=== PATIENT | male | born 1945 | race Caucasian/White ===

== ENCOUNTER 2017-04-11 19:52 | Emergency (ER) | payer BC, MEDICARE ==
--- NOTE | 2017-04-11 20:15 | EDM.PDOC ---
ED HPI GENERAL MEDICAL PROBLEM - General Chief Complaint: General Stated Complaint: SICK [id number] Time Seen by Provider: 04/11/17 20:15 Source of Information: Reports: Patient History Limitations: Reports: No Limitations - History of Present Illness INITIAL COMMENTS - FREE TEXT/NARRATIVE: brought in by family for confusion and weakness. pt was just d/c from [facility] today from being Tx there for blood clots to feet and lungs with heparin and suppose to begin lovenox tomorrow. but today Sx of confusion & weakness started. also been Dx with CA of [id number]. - Related Data Allergies Allergy/AdvReac Type Severity Reaction Status Date / Time No Known Allergies Allergy Verified 04/11/17 20:47 Home Meds: Home Meds Aspirin [Adult Low Dose Aspirin EC] 81 mg PO DAILY 10/12/16 [History] Canagliflozin [Invokana] 100 mg PO DAILY 10/12/16 [History] Hydrochlorothiazide 25 mg PO DAILY 10/12/16 [History] Latanoprost [Xalatan 0.005% Ophth Soln] 1 drop EYERT BEDTIME 10/12/16 [History] Liraglutide [Victoza] 1.8 mg INJECT DAILY 10/12/16 [History] Lisinopril 5 mg PO DAILY 10/12/16 [History] Metoprolol Succinate [Toprol XL] 50 mg PO DAILY 10/12/16 [History] atorvaSTATin [Lipitor] 40 mg PO BEDTIME 10/12/16 [History] metFORMIN HCl [Metformin HCl] 1 tab PO BIDMEALS 10/12/16 [History] rOPINIRole [Requip] 6 mg PO BEDTIME 10/12/16 [History] traZODone HCl [Trazodone HCl] 100 mg PO BEDTIME 10/12/16 [History] Cinnamon Bark [Cinnamon] 1 cap PO DAILY 04/11/17 [History] Insulin Degludec/Liraglutide [Xultophy 100 Unit-3.6MG/ml Pen] 70 units SQ DAILY 04/11/17 [History] [place]-3/DHA/Epa/Fish Oil [[place]-3 EC Softgel] 1 cap PO DAILY 04/11/17 [History] Ubidecarenone [Coenzyme Q10] 1 cap PO DAILY 04/11/17 [History] ED ROS GENERAL - Review of Systems Review Of Systems: ROS reveals no pertinent complaints other than HPI. ED EXAM, GENERAL - Physical Exam Exam: See Below Exam Limited By: Altered Mental Status General Appearance: Alert, WD/WN, No Apparent Distress, Other (confused) Eye Exam: Bilateral Eye: PERRL (pupils ess ER @ 4mm) Ears: Hearing Grossly Normal Throat/Mouth: Normal Voice, No Airway Compromise Head: Atraumatic Neck: Non-Tender, Full Range of Motion Respiratory/Chest: No Respiratory Distress, No Accessory Muscle Use, Rhonchi. No: Decreased Breath Sounds Cardiovascular: Regular Rate, Rhythm GI/Abdominal: Soft, Non-Tender Neurological: Confused, Slow to Respond, Other (rom equal bilat) Psychiatric: Flat Affect Skin Exam: Warm, Dry, Normal Color Lymphatic: No Adenopathy Course - Vital Signs Last Recorded V/S: Last Vital Signs Temp 37.4 C 04/11/17 20:06 Pulse 118 H 04/11/17 20:06 Resp 22 H 04/11/17 20:06 BP 102/60 04/11/17 20:59 Pulse Ox 92 L 04/11/17 20:06 - Orders/Labs/Meds Orders: Active Orders 24 hr Category Date Time Status EKG 12 Lead [EKG Documentation Completion] [RC] STAT Care 04/11/17 20:11 Active Sodium Chloride 0.9% [Normal Saline] 1,000 ml Med 04/11/17 20:57 Ordered IV .BOLUS Medication Orders Sodium Chloride (Normal Saline) 1,000 mls @ 500 mls/hr IV .BOLUS ONE Stop: 04/11/17 22:56 Labs: Laboratory Tests 04/11/17 04/11/17 04/11/17 Range/Units 20:19 20:19 20:19 WBC 14.3 H (5.0-10.0) 10^3/uL RBC 4.42 L (4.6-6.2) 10^6/uL Hgb 12.7 L (14.0-18.0) g/dL Hct 38.7 L (40.0-54.0) % MCV 87.6 (80-100) fL MCH 28.7 (27.0-34.0) pg MCHC 32.8 L (33.0-35.0) g/dL Plt Count 112 L (150-450) 10^3/uL Neut % (Auto) 78.7 H (42.2-75.2) % Lymph % (Auto) 8.8 L (20.5-50.1) % Nuckolls % (Auto) 11.8 H (2-8) % Eos % (Auto) 0.3 L (1.0-3.0) % Baso % (Auto) 0.4 (0.0-1.0) % Add Manual Diff Yes Neutrophils % (Manual) 83 H (42-75) % Band Neutrophils % 2 % Lymphocytes % (Manual) 7 L (20-50) % Monocytes % (Manual) 8 (2-8) % PT 12.1 H (9.0-12.0) SEC INR 1.2 (0.9-1.2) Sodium 134 L (135-145) mmol/L Potassium 3.8 (3.6-5.0) mmol/L Chloride 100 L (101-111) mmol/L Carbon Dioxide 23.0 (21.0-31.0) mmol/L Anion Gap 14.8 BUN 20 H (7-18) mg/dL Creatinine 1.0 (0.6-1.3) mg/dL Est Cr Clr Drug Dosing 65.18 mL/min Estimated GFR (MDRD) > 60 BUN/Creatinine Ratio 20.00 Glucose 299 H (74-105) mg/dL Calcium 9.0 (8.4-10.2) mg/dl Total Bilirubin 0.8 (0.2-1.0) mg/dL AST 85 H (10-42) IU/L ALT 67 H (10-60) IU/L Alkaline Phosphatase 125 H (42-121) IU/L Troponin I 16.40 H* (0.00-0.02) ng/ml Total Protein 6.5 L (6.7-8.2) g/dl Albumin 3.1 L (3.2-5.5) g/dl Globulin 3.4 Albumin/Globulin Ratio 0.91 Meds: Medications Generic Name Dose Route Start Last Admin Trade Name Freq PRN Reason Stop Dose Admin Sodium Chloride 1,000 mls @ 500 mls/hr 04/11/17 20:57 Normal Saline IV 04/11/17 22:56 .BOLUS ONE Discontinued Medications Generic Name Dose Route Start Last Admin Trade Name Freq PRN Reason Stop Dose Admin Nitroglycerin 0.4 mg 04/11/17 20:53 04/11/17 20:59 Nitrostat SL 04/11/17 20:54 0.4 mg ONETIME ONE Administration - Re-Assessments/Exams Free Text/Narrative Re-Assessment/Exam: 04/11/17 20:[address] Naidu @ who kindly accepted pt. Departure - Departure Time of Disposition: 21:05 Disposition: DC/Tfer to Acute Hospital 02 Condition: Fair Clinical Impression: NC, Myocardial infarction, Elevated troponin, Confusion - Discharge Information Forms: Interfacility Transfer EMTALA - My Orders Last 24 Hours: My Active Orders 04/11/17 20:11 EKG 12 Lead [EKG Documentation Completion] [RC] STAT 04/11/17 20:57 Sodium Chloride 0.9% [Normal Saline] 1,000 ml IV .BOLUS - Assessment/Plan Last 24 Hours: My Active Orders 04/11/17 20:11 EKG 12 Lead [EKG Documentation Completion] [RC] STAT 04/11/17 20:57 Sodium Chloride 0.9% [Normal Saline] 1,000 ml IV .BOLUS
[2017-04-11 20:47] LABS: CHLORIDE,CL 100 mmol/L (101-111); SODIUM,NA 134 mmol/L (135-145)
[2017-04-11] MEDS ORDERED: Nitroglycerin 0.4 MG Tab.SL SL ONE (20:53)
[2017-04-11] MEDS ORDERED: Sodium Chloride 0.9% 1,000 ML IV ONE (20:57)
--- NOTE | 2017-04-14 10:47 | EKG ---
04/11/2017 - DIETER DALY - FINDINGS: I reviewed the EKG and agree with the machine's reading. [facility] /[id number]
== END 2017-04-11 21:39 ==
LOC: DL.ED 19:52
DX: I21.9 Acute myocardial infarction, unspecified (principal); R41.0 Disorientation, unspecified; R79.89 Other specified abnormal findings of blood chemistry; Z79.82 Long term (current) use of aspirin; Z79.899 Other long term (current) drug therapy; Z79.84 Long term (current) use of oral hypoglycemic drugs
CPT/HCPCS: 36415; 70450; 71010; 80053; 84484; 85025; 85610; 93005; 93010; 99285; A9270; J7030

== ENCOUNTER 2017-04-22 12:04 | Inpatient (IN) | payer BC, MEDICARE ==
[2017-04-22] MEDS ORDERED: Acetaminophen 325 MG Tab PO SCH (15:45)
[2017-04-22] MEDS ORDERED: rOPINIRole 2 MG Tab PO PRN (15:45)
[2017-04-22] MEDS: Ferrous Sulfate 325 MG Tab PO SCH (18:32)
[2017-04-22] MEDS: metFORMIN 500 MG Tab PO SCH (18:32)
[2017-04-22] MEDS: CINNAMON BARK 1000 MG PO SCH (20:08)
[2017-04-22] MEDS: LATANOPROST 0.005% EYERT SCH (20:09)
[2017-04-22] MEDS: Gabapentin 300 MG Cap PO SCH (20:10)
[2017-04-22] MEDS: rOPINIRole 2 MG Tab PO SCH (20:10)
[2017-04-22] MEDS: MELATONIN 3 MG PO SCH (20:11)
[2017-04-22] MEDS ORDERED: traZODone 50 MG Tab PO SCH (21:00)
[2017-04-22] MEDS ORDERED: atorvaSTATin 20 MG Tab PO SCH (21:00)
--- NOTE | 2017-04-22 22:45 | HP ---
HISTORY OF PRESENT ILLNESS: Mr. Valencia is a 71-year-old male admitted under swing bed for continued strengthening. The patient was recently hospitalized twice in [facility]. Initially, he was hospitalized because of blue toe syndrome and was seen by Vascular, started on IV heparin, and during that admission, he was noted to have a pancreatic mass and scheduled for biopsy of the liver. He also was noted to have pulmonary embolism, and an IVC filter was also inserted. Second hospitalization, he developed chest pain and was noted to have elevated troponin, NSTEMI. He was sent for catheterization and was noted to have an occlusion of LAD and stenosis of the right venous graft. He had CABG done in 2011. 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 CT of the brain showed no metastasis. He was noted to have at some point encephalopathy, which was deemed to be from medications. has been having severe symptoms of restless leg syndrome, and he has been on gabapentin and Requip as needed. Further conversation with his specialist in [place], he decided no further intervention for the pancreatic cancer. He was noted to be weak and hence advised strengthening under swing bed. PAST MEDICAL HISTORY: Diabetes mellitus, history of CAD, aortic stenosis, status post valve replacement in 2012, hypertension, hyperlipidemia, obesity, sleep apnea, and restless legs syndrome. PAST SURGICAL HISTORY: Valve replacement, knee arthroplasty, CABG, knee manipulation and injection, and cataract removal. FAMILY HISTORY: Cancer in the paternal grandmother. History of heart problems in the parents. Diabetes also runs in the family. SOCIAL HISTORY: Former smoker. Rare alcohol drinks. No recreational drug use. 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 MEDICATIONS: Reviewed. REVIEW OF SYSTEMS: Ten systems reviewed and were negative except for those mentioned above. ALLERGIES: No known drug allergies. PHYSICAL EXAMINATION: Vital Signs: Blood pressure 131/86, heart rate of 91 beats per minute, respirations 20 breaths per minute, oxygen saturation 100%, temperature 98.2. General Appearance: Awake, in distress. Chest: Symmetric chest expansion. Lungs: Bilateral air entry. Cardiovascular System: Regular rate and rhythm. Abdomen: Soft. Normoactive bowel sounds. Extremities: Trace edema. LABORATORY DATA: Latest laboratories in [place] showed basic metabolic panel done on April 22. BUN 11, sodium 139, potassium 3.8, chloride 97, bicarb 27, glucose 124, creatinine 0.7. GFR more than 60. Anion gap 14.5 and creatinine of 0.7. CBC; hemoglobin of 12.6, WBC of 10.55, and platelets 253. Ferritin 732. ASSESSMENT AND PLAN: The patient is a 71-year-old, who recently had myocardial infarction and recent diagnosis of pancreatic cancer. We will continue to strengthen him under swing bed. We will continue the rest of his medication. We will do GlucoChecks for his diabetes. During our conversation, he does not have any issues raised. Code status DNR/DNI. He will be in swing bed for 7 days and will be discharged after. [facility] /[id number] MARQUITA
[2017-04-23] MEDS: metFORMIN 500 MG Tab PO SCH ×2 (08:35→17:44)
[2017-04-23] MEDS: Ferrous Sulfate 325 MG Tab PO SCH (08:35)
[2017-04-23] MEDS: Furosemide 40 MG Tab PO SCH ×2 (08:35→15:23)
[2017-04-23] MEDS: Aspirin 81 MG Tab.EC PO SCH (08:35)
[2017-04-23] MEDS: Potassium Chloride 10 MEQ Tab.ER PO SCH (08:35)
[2017-04-23] MEDS: CINNAMON BARK 1000 MG PO SCH ×2 (08:36→21:01)
[2017-04-23] MEDS: Clopidogrel 75 MG Tab PO SCH (08:42)
[2017-04-23] MEDS: Lisinopril 5 MG Tab PO SCH (08:42)
[2017-04-23] MEDS: TRESIBA INSULIN SUBCUT SCH (08:42)
[2017-04-23] MEDS: Enoxaparin 60 MG/0.6 ML Syringe SUBCUT SCH (08:42)
[2017-04-23] MEDS: Metoprolol Succinate 50 MG Tab.ER PO SCH (08:42)
[2017-04-23] MEDS: Gabapentin 100 MG Cap PO SCH ×2 (08:45→15:23)
[2017-04-23] MEDS ORDERED: Non-Formulary Medication 1 Each (Liraglutide [Victoza] 1.8 MG) INJECT SCH (09:00)
[2017-04-23] MEDS ORDERED: Haloperidol 1 MG Tab PO SCH (21:00)
[2017-04-23] MEDS: LATANOPROST 0.005% EYERT SCH (21:01)
[2017-04-23] MEDS: MELATONIN 3 MG PO SCH (21:01)
[2017-04-23] MEDS: rOPINIRole 2 MG Tab PO SCH (21:02)
[2017-04-23] MEDS: Acetaminophen 325 MG Tab PO SCH (21:03)
[2017-04-23] MEDS: Gabapentin 300 MG Cap PO SCH (21:03)
[2017-04-23] MEDS: traZODone 50 MG Tab PO SCH (21:03)
[2017-04-24] MEDS ORDERED: Haloperidol 1 MG Tab PO SCH ×2 (08:00→14:00)
[2017-04-24] MEDS: metFORMIN 500 MG Tab PO SCH ×2 (08:26→17:16)
[2017-04-24] MEDS: Potassium Chloride 10 MEQ Tab.ER PO SCH (08:27)
[2017-04-24] MEDS: Aspirin 81 MG Tab.EC PO SCH (08:27)
[2017-04-24] MEDS: Furosemide 40 MG Tab PO SCH ×2 (08:28→13:33)
[2017-04-24] MEDS: Clopidogrel 75 MG Tab PO SCH (08:28)
[2017-04-24] MEDS: Lisinopril 5 MG Tab PO SCH (08:29)
[2017-04-24] MEDS: traZODone 50 MG Tab PO SCH ×2 (08:30→21:20)
[2017-04-24] MEDS: Metoprolol Succinate 50 MG Tab.ER PO SCH (08:30)
[2017-04-24] MEDS: Enoxaparin 60 MG/0.6 ML Syringe SUBCUT SCH (08:31)
[2017-04-24] MEDS: TRESIBA INSULIN SUBCUT SCH (08:32)
[2017-04-24] MEDS: CINNAMON BARK 1000 MG PO SCH ×2 (08:37→20:26)
[2017-04-24] MEDS: Gabapentin 100 MG Cap PO SCH ×2 (08:41→13:34)
[2017-04-24] MEDS: rOPINIRole 2 MG Tab PO SCH (20:22)
[2017-04-24] MEDS: MELATONIN 3 MG PO SCH (20:26)
[2017-04-24] MEDS: Acetaminophen 325 MG Tab PO SCH (20:27)
[2017-04-24] MEDS: Gabapentin 300 MG Cap PO SCH (20:27)
[2017-04-24] MEDS: LATANOPROST 0.005% EYERT SCH (20:29)
[2017-04-25] MEDS: Aspirin 81 MG Tab.EC PO SCH (08:20)
[2017-04-25] MEDS: metFORMIN 500 MG Tab PO SCH ×2 (08:21→17:50)
[2017-04-25] MEDS: Furosemide 40 MG Tab PO SCH ×2 (08:21→14:20)
[2017-04-25] MEDS: Potassium Chloride 10 MEQ Tab.ER PO SCH (08:22)
[2017-04-25] MEDS: TRESIBA INSULIN SUBCUT SCH (09:41)
[2017-04-25] MEDS: CINNAMON BARK 1000 MG PO SCH ×2 (09:43→21:11)
[2017-04-25] MEDS: Clopidogrel 75 MG Tab PO SCH (09:44)
[2017-04-25] MEDS: Lisinopril 5 MG Tab PO SCH (09:44)
[2017-04-25] MEDS: Metoprolol Succinate 50 MG Tab.ER PO SCH (09:45)
[2017-04-25] MEDS: Gabapentin 100 MG Cap PO SCH ×2 (09:50→14:20)
[2017-04-25] MEDS: Enoxaparin 60 MG/0.6 ML Syringe SUBCUT SCH (09:51)
[2017-04-25] MEDS: traZODone 50 MG Tab PO SCH ×2 (09:53→21:14)
[2017-04-25] MEDS: rOPINIRole 2 MG Tab PO PRN (15:56)
[2017-04-25] MEDS: MELATONIN 3 MG PO SCH (21:12)
[2017-04-25] MEDS: Gabapentin 300 MG Cap PO SCH (21:13)
[2017-04-25] MEDS: Acetaminophen 325 MG Tab PO SCH (21:14)
[2017-04-25] MEDS: rOPINIRole 2 MG Tab PO SCH (21:14)
[2017-04-25] MEDS: LATANOPROST 0.005% EYERT SCH (21:16)
[2017-04-26] MEDS: Potassium Chloride 10 MEQ Tab.ER PO SCH (08:07)
[2017-04-26] MEDS: Furosemide 40 MG Tab PO SCH ×2 (08:07→13:59)
[2017-04-26] MEDS: Aspirin 81 MG Tab.EC PO SCH (08:07)
[2017-04-26] MEDS: metFORMIN 500 MG Tab PO SCH ×2 (08:07→18:08)
[2017-04-26] MEDS: Lisinopril 5 MG Tab PO SCH (09:01)
[2017-04-26] MEDS: Metoprolol Succinate 50 MG Tab.ER PO SCH (09:01)
[2017-04-26] MEDS: Enoxaparin 60 MG/0.6 ML Syringe SUBCUT SCH (09:01)
[2017-04-26] MEDS: Clopidogrel 75 MG Tab PO SCH (09:01)
[2017-04-26] MEDS: CINNAMON BARK 1000 MG PO SCH ×2 (09:02→21:04)
[2017-04-26] MEDS: TRESIBA INSULIN SUBCUT SCH (09:03)
[2017-04-26] MEDS: rOPINIRole 2 MG Tab PO PRN ×2 (09:10→14:03)
[2017-04-26] MEDS: Gabapentin 100 MG Cap PO SCH ×2 (10:00→13:59)
[2017-04-26] MEDS: rOPINIRole 2 MG Tab PO SCH (21:02)
[2017-04-26] MEDS: traZODone 50 MG Tab PO SCH (21:02)
[2017-04-26] MEDS: Gabapentin 300 MG Cap PO SCH (21:02)
[2017-04-26] MEDS: Acetaminophen 325 MG Tab PO SCH (21:03)
[2017-04-26] MEDS: MELATONIN 3 MG PO SCH (21:04)
[2017-04-26] MEDS: LATANOPROST 0.005% EYERT SCH (21:06)
[2017-04-27] MEDS: metFORMIN 500 MG Tab PO SCH ×2 (08:28→17:10)
[2017-04-27] MEDS: Aspirin 81 MG Tab.EC PO SCH (08:28)
[2017-04-27] MEDS: Potassium Chloride 10 MEQ Tab.ER PO SCH (08:28)
[2017-04-27] MEDS: Furosemide 40 MG Tab PO SCH ×2 (08:29→14:29)
[2017-04-27] MEDS: Enoxaparin 60 MG/0.6 ML Syringe SUBCUT SCH (08:29)
[2017-04-27] MEDS: Lisinopril 5 MG Tab PO SCH (08:30)
[2017-04-27] MEDS: Metoprolol Succinate 50 MG Tab.ER PO SCH (08:30)
[2017-04-27] MEDS: Clopidogrel 75 MG Tab PO SCH (08:30)
[2017-04-27] MEDS: Acetaminophen 325 MG Tab PO PRN ×2 (08:33→17:35)
[2017-04-27] MEDS: Gabapentin 100 MG Cap PO SCH ×2 (08:43→14:35)
[2017-04-27] MEDS: CINNAMON BARK 1000 MG PO SCH ×2 (08:46→21:51)
[2017-04-27] MEDS: TRESIBA INSULIN SUBCUT SCH (09:02)
[2017-04-27] MEDS: rOPINIRole 2 MG Tab PO PRN ×3 (09:11→18:25)
[2017-04-27] MEDS: Calcium Carbonate 500 MG Tab.Chew PO PRN (17:11)
[2017-04-27] MEDS: MELATONIN 3 MG PO SCH (21:51)
[2017-04-27] MEDS: rOPINIRole 2 MG Tab PO SCH (21:52)
[2017-04-27] MEDS: Gabapentin 300 MG Cap PO SCH (21:52)
[2017-04-27] MEDS: traZODone 50 MG Tab PO SCH (21:53)
[2017-04-27] MEDS: Acetaminophen 325 MG Tab PO SCH (21:53)
[2017-04-27] MEDS: LATANOPROST 0.005% EYERT SCH (21:54)
[2017-04-28] MEDS: Furosemide 40 MG Tab PO SCH ×2 (09:16→14:38)
[2017-04-28] MEDS: TRESIBA INSULIN SUBCUT SCH (09:16)
[2017-04-28] MEDS: metFORMIN 500 MG Tab PO SCH ×2 (09:17→18:18)
[2017-04-28] MEDS: Potassium Chloride 10 MEQ Tab.ER PO SCH (09:17)
[2017-04-28] MEDS: Aspirin 81 MG Tab.EC PO SCH (09:17)
[2017-04-28] MEDS: Clopidogrel 75 MG Tab PO SCH (09:17)
[2017-04-28] MEDS: Enoxaparin 60 MG/0.6 ML Syringe SUBCUT SCH (09:17)
[2017-04-28] MEDS: Metoprolol Succinate 50 MG Tab.ER PO SCH (09:22)
[2017-04-28] MEDS: Lisinopril 5 MG Tab PO SCH (09:25)
[2017-04-28] MEDS: CINNAMON BARK 1000 MG PO SCH ×2 (09:29→20:47)
[2017-04-28] MEDS: Gabapentin 100 MG Cap PO SCH ×2 (10:55→14:38)
--- NOTE | 2017-04-28 10:55 | CR ---
Clinical history: 71-year-old male with anterior lower left chest pain. (Recent diagnosis "metastatic pancreatic cancer") Interpretation: PA lateral chest films confirm sternotomy wires and cardiac valve prosthesis. Calcifications arch of the ectatic aorta and several old healed rib fracture deformities laterally. Normal cardiac silhouette unchanged since 11 April exam without current cephalization of vascular flow, signs of alveolar edema or dependent new pleural fluid accumulation. No new lung mass, hilar lymphadenopathy or focal lobar pneumonia. No pneumothorax. Old compression several mid thoracic vertebral bodies with hypertrophic marginal buttressing spur unc hanged since sagittal imaging CT exam 07 October 2016. CONCLUSION: No new signs of heart failure, lung mass or focal lobar pneumonia. Postoperative changes of the heart. No current signs of metastatic lung disease.
[2017-04-28] MEDS: Calcium Carbonate 500 MG Tab.Chew PO PRN (11:02)
[2017-04-28] MEDS: rOPINIRole 2 MG Tab PO PRN ×2 (11:03→15:29)
[2017-04-28] MEDS: Acetaminophen 325 MG Tab PO PRN (11:04)
[2017-04-28] MEDS: traZODone 50 MG Tab PO SCH (20:43)
[2017-04-28] MEDS: Acetaminophen 325 MG Tab PO SCH (20:43)
[2017-04-28] MEDS: rOPINIRole 2 MG Tab PO SCH (20:44)
[2017-04-28] MEDS: Gabapentin 300 MG Cap PO SCH (20:44)
[2017-04-28] MEDS: MELATONIN 3 MG PO SCH (20:47)
[2017-04-28] MEDS: LATANOPROST 0.005% EYERT SCH (20:48)
[2017-04-29] MEDS: Potassium Chloride 10 MEQ Tab.ER PO SCH (07:58)
[2017-04-29] MEDS: Furosemide 40 MG Tab PO SCH ×2 (07:58→14:36)
[2017-04-29] MEDS: Aspirin 81 MG Tab.EC PO SCH (07:58)
[2017-04-29] MEDS: metFORMIN 500 MG Tab PO SCH (07:59)
[2017-04-29] MEDS: Metoprolol Succinate 50 MG Tab.ER PO SCH (09:09)
[2017-04-29] MEDS: Clopidogrel 75 MG Tab PO SCH (09:10)
[2017-04-29] MEDS: Lisinopril 5 MG Tab PO SCH (09:10)
[2017-04-29] MEDS: Enoxaparin 60 MG/0.6 ML Syringe SUBCUT SCH (09:11)
[2017-04-29] MEDS: Gabapentin 100 MG Cap PO SCH ×2 (09:11→14:36)
[2017-04-29] MEDS: CINNAMON BARK 1000 MG PO SCH (09:11)
[2017-04-29] MEDS: TRESIBA INSULIN SUBCUT SCH (09:17)
[2017-04-29] MEDS: rOPINIRole 2 MG Tab PO PRN (13:27)
--- NOTE | 2017-04-29 16:11 | PCM.HP ---
H&P History of Present Illness - General Admit Problem/Dx: Admission Diagnosis/Problem Admission Diagnosis/Problem Weakness Source of Information: Patient History Limitations: Reports: No Limitations - History of Present Illness Symptom Onset Date: 04/28/17 Symptom Onset Time: 16:08 Middle Chest Pain Score (Numeric/FACES): 0 - Related Data Allergies/Adverse Reactions: Allergies Allergy/AdvReac Type Severity Reaction Status Date / Time No Known Allergies Allergy Verified 04/22/17 14:27 Home Medications: Home Meds Aspirin [Adult Low Dose Aspirin EC] 81 mg PO DAILY 10/12/16 [History] Latanoprost [Xalatan 0.005% Ophth Soln] 1 drop EYERT BEDTIME 10/12/16 [History] Lisinopril 5 mg PO DAILY 10/12/16 [History] Metoprolol Succinate [Toprol XL] 50 mg PO DAILY 10/12/16 [History] atorvaSTATin [Lipitor] 40 mg PO BEDTIME 10/12/16 [History] metFORMIN HCl [Metformin HCl] 1 tab PO BIDMEALS 10/12/16 [History] rOPINIRole [Requip] 6 mg PO BEDTIME 10/12/16 [History] traZODone HCl [Trazodone HCl] 100 mg PO BEDTIME 10/12/16 [History] Cinnamon Bark [Cinnamon] 1 cap PO BID 04/11/17 [History] Acetaminophen [Tylenol] 650 mg PO Q6H PRN 04/22/17 [History] Clopidogrel [Plavix] 75 mg PO DAILY 04/22/17 [History] Enoxaparin Sodium [Lovenox] 120 mg SQ DAILY 04/22/17 [History] Ferrous Sulfate [Iron] 325 mg PO BID 04/22/17 [History] Furosemide 40 mg PO BID 04/22/17 [History] Gabapentin [Neurontin] 100 mg PO BID 04/22/17 [History] Gabapentin [Neurontin] 300 mg PO BEDTIME 04/22/17 [History] Melatonin 3 mg PO BEDTIME 04/22/17 [History] Patient's Own Medication [Ptom] 70 units SUBCUT DAILY 04/22/17 [History] Potassium Chloride [Klor-Con 10] 40 meq PO DAILY 04/22/17 [History] Sennosides [Senokot] 8.6 mg PO BID 04/22/17 [History] rOPINIRole [Requip] 1 mg PO TID PRN 04/22/17 [History] Past Medical History HEENT History: Reports: Cataract, Glaucoma, Impaired Vision Cardiovascular History: Reports: Blood Clots/VTE/DVT, Bypass, Heart Valve Replacement, High Cholesterol, Hypertension, WI, SOB on Exertion Respiratory History: Reports: PE, Sleep Apnea Other Respiratory History: PE Gastrointestinal History: Reports: None, Cholelithiasis, GERD Genitourinary History: Reports: Urinary Incontinence, Other (See Below) Other Genitourinary History: dribbles, stress Musculoskeletal History: Reports: Arthritis, Other (See Below) Other Musculoskeletal History: RLS Neurological History: Reports: CVA Psychiatric History: Reports: None Endocrine/Metabolic History: Reports: Diabetes, Type II Hematologic History: Reports: None Immunologic History: Reports: None Oncologic (Cancer) History: Reports: Bone, Liver, Pancreatic Other Oncologic History: New Dx Dermatologic History: Reports: None - Infectious Disease History Infectious Disease History: Reports: None - Past Surgical History HEENT Surgical History: Reports: Cataract Surgery Cardiovascular Surgical History: Reports: Coronary Artery Bypass, Valve Replacement Respiratory Surgical History: Reports: None GI Surgical History: Reports: Colonoscopy Endocrine Surgical History: Reports: None Neurological Surgical History: Reports: None Musculoskeletal Surgical History: Reports: Knee Replacement, Other (See Below) Other Musculoskeletal Surgeries/Procedures:: bilateral knees Oncologic Surgical History: Reports: None Dermatological Surgical History: Reports: None Social & Family History - Family History Family Medical History: Noncontributory - Tobacco Use Smoking Status *Q: Never Smoker Second Hand Smoke Exposure: No - Caffeine Use Caffeine Use: Reports: Coffee - Recreational Drug Use Recreational Drug Use: No H&P Review of Systems - Review of Systems: Review Of Systems: See Below General: Reports: No Symptoms Pulmonary: Reports: Shortness of Breath, Cough, Sputum Musculoskeletal: Reports: No Symptoms Neurological: Reports: No Symptoms Exam - Exam Exam: See Below - Vital Signs Vital Signs: Last Vital Signs Temp 97.7 F 04/29/17 07:36 Pulse 98 04/29/17 09:09 Resp 20 04/29/17 07:36 BP 133/89 04/29/17 09:10 Pulse Ox 99 04/29/17 07:36 Weight: 272 lb - Exam HEENT: PERRLA, Hearing Intact, Mucosa Moist & [place]id[place], Nares Patent, Normal Nasal Septum, Posterior Pharynx Clear, Conjunctiva Clear, EOMI, EACs Clear, TMs Clear Cardiovascular: Regular Rate, Regular Rhythm GI/Abdominal Exam: Normal Bowel Sounds, Soft, Non-Tender, No Organomegaly, No Distention, No Abnormal Bruit, No Mass, Pelvis Stable Rectal (Males) Exam: Normal Exam, Normal Rectal Tone, Prostate Normal - Patient Data Lab Results Last 24 hrs: Laboratory Results - last 24 hr 04/28/17 04/28/17 04/29/17 Range/Units 17:15 20:58 07:43 POC Glucose 140 H 107 H 76 (70-105) mg/dl *Q Meaningful Use (ADM) - VTE *Q VTE Criteria *Q: - Stroke *Q Stroke Criteria *Q: - AMI *Q AMI Criteria *Q: - Problem List (1) Carcinoma of pancreas metastatic to liver SNOMED Code(s): 972468939 ICD Code: C25.9 - MALIGNANT NEOPLASM OF PANCREAS, UNSPECIFIED; C78.7 - SECONDARY MALIG NEOPLASM OF LIVER AND INTRAHEPATIC BILE DUCT Status: Acute Priority: Medium Current Visit: Yes Problem List Initiated/Reviewed/Updated: Yes Orders Last 24hrs: Active Orders 24 hr Category Date Time Status Ready for Discharge [RC] PER UNIT ROUTINE Care 04/29/17 13:11 Active Medication Orders Acetaminophen (Tylenol) 650 mg PO Q6H PRN PRN Reason: Pain Last Admin: 04/28/17 11:04 Dose: 650 mg Admin: 04/27/17 17:35 Dose: 650 mg Admin: 04/27/17 08:33 Dose: 650 mg Acetaminophen (Tylenol) 650 mg PO DAILY@2100 [facility] Last Admin: 04/28/17 20:43 Dose: 650 mg Admin: 04/27/17 21:53 Dose: 650 mg Admin: 04/26/17 21:03 Dose: 650 mg Admin: 04/25/17 21:14 Dose: 650 mg Admin: 04/24/17 20:27 Dose: 650 mg Admin: 04/23/17 21:03 Dose: 650 mg Aspirin (Halfprin) 81 mg PO DAILY@0800 [facility] Last Admin: 04/29/17 07:58 Dose: 81 mg Admin: 04/28/17 09:17 Dose: 81 mg Admin: 04/27/17 08:28 Dose: 81 mg Admin: 04/26/17 08:07 Dose: 81 mg Admin: 04/25/17 08:20 Dose: 81 mg Admin: 04/24/17 08:27 Dose: 81 mg Admin: 04/23/17 08:35 Dose: 81 mg Calcium Carbonate/Glycine (Tums) 500 mg PO TID PRN PRN Reason: Dyspepsia Last Admin: 04/28/17 11:02 Dose: 500 mg Admin: 04/27/17 17:11 Dose: 500 mg Clopidogrel Bisulfate (Plavix) 75 mg PO DAILY [facility] Last Admin: 04/29/17 09:10 Dose: 75 mg Admin: 04/28/17 09:17 Dose: 75 mg Admin: 04/27/17 08:30 Dose: 75 mg Admin: 04/26/17 09:01 Dose: 75 mg Admin: 04/25/17 09:44 Dose: 75 mg Admin: 04/24/17 08:28 Dose: 75 mg Admin: 04/23/17 08:42 Dose: 75 mg Enoxaparin Sodium (Lovenox) 120 mg SUBCUT DAILY [facility] Last Admin: 04/29/17 09:11 Dose: 120 mg Admin: 04/28/17 09:17 Dose: 120 mg Admin: 04/27/17 08:29 Dose: 120 mg Admin: 04/26/17 09:01 Dose: 120 mg Admin: 04/25/17 09:51 Dose: 120 mg Admin: 04/24/17 08:31 Dose: 120 mg Admin: 04/23/17 08:42 Dose: 120 mg Furosemide (Lasix) 40 mg PO BIDDIURETIC [facility] Last Admin: 04/29/17 14:36 Dose: 40 mg Admin: 04/29/17 07:58 Dose: 40 mg Admin: 04/28/17 14:38 Dose: 40 mg Admin: 04/28/17 09:16 Dose: 40 mg Admin: 04/27/17 14:29 Dose: 40 mg Admin: 04/27/17 08:29 Dose: 40 mg Admin: 04/26/17 13:59 Dose: 40 mg Admin: 04/26/17 08:07 Dose: 40 mg Admin: 04/25/17 14:20 Dose: 40 mg Admin: 04/25/17 08:21 Dose: 40 mg Admin: 04/24/17 13:33 Dose: 40 mg Admin: 04/24/17 08:28 Dose: 40 mg Admin: 04/23/17 15:23 Dose: 40 mg Admin: 04/23/17 08:35 Dose: 40 mg Gabapentin (Neurontin) 100 mg PO 0900,1400 [facility] Last Admin: 04/29/17 14:36 Dose: 100 mg Admin: 04/29/17 09:11 Dose: 100 mg Admin: 04/28/17 14:38 Dose: 100 mg Admin: 04/28/17 10:55 Dose: 100 mg Admin: 04/27/17 14:35 Dose: 100 mg Admin: 04/27/17 08:43 Dose: 100 mg Admin: 04/26/17 13:59 Dose: 100 mg Admin: 04/26/17 10:00 Dose: 100 mg Admin: 04/25/17 14:20 Dose: 100 mg Admin: 04/25/17 09:50 Dose: 100 mg Admin: 04/24/17 13:34 Dose: 100 mg Admin: 04/24/17 08:41 Dose: 100 mg Admin: 04/23/17 15:23 Dose: 100 mg Admin: 04/23/17 08:45 Dose: 100 mg Gabapentin (Neurontin) 300 mg PO BEDTIME [facility] Last Admin: 04/28/17 20:44 Dose: 300 mg Admin: 04/27/17 21:52 Dose: 300 mg Admin: 04/26/17 21:02 Dose: 300 mg Admin: 04/25/17 21:13 Dose: 300 mg Admin: 04/24/17 20:27 Dose: 300 mg Admin: 04/23/17 21:03 Dose: 300 mg Admin: 04/22/17 20:10 Dose: 300 mg Latanoprost (Xalatan 0.005% Ophth Soln) 0 ml EYERT BEDTIME [facility] Last Admin: 04/28/17 20:48 Dose: 1 drop Admin: 04/27/17 21:54 Dose: 1 drop Admin: 04/26/17 21:06 Dose: 1 drop Admin: 04/25/17 21:16 Dose: 1 drop Admin: 04/24/17 20:29 Dose: 1 drop Admin: 04/23/17 21:01 Dose: 1 drop Admin: 04/22/17 20:09 Dose: 1 drop Lisinopril (Prinivil) 5 mg PO DAILY [facility] Last Admin: 04/29/17 09:10 Dose: 5 mg Admin: 04/28/17 09:25 Dose: 5 mg Admin: 04/27/17 08:30 Dose: 5 mg Admin: 04/26/17 09:01 Dose: 5 mg Admin: 04/25/17 09:44 Dose: 5 mg Admin: 04/24/17 08:29 Dose: 5 mg Admin: 04/23/17 08:42 Dose: 5 mg Metformin HCl (Glucophage) 1,000 mg PO BIDMEALS [facility] Last Admin: 04/29/17 07:59 Dose: 1,000 mg Admin: 04/28/17 18:18 Dose: 1,000 mg Admin: 04/28/17 09:17 Dose: 1,000 mg Admin: 04/27/17 17:10 Dose: 1,000 mg Admin: 04/27/17 08:28 Dose: 1,000 mg Admin: 04/26/17 18:08 Dose: 1,000 mg Admin: 04/26/17 08:07 Dose: 1,000 mg Admin: 04/25/17 17:50 Dose: 1,000 mg Admin: 04/25/17 08:21 Dose: 1,000 mg Admin: 04/24/17 17:16 Dose: 1,000 mg Admin: 04/24/17 08:26 Dose: 1,000 mg Admin: 04/23/17 17:44 Dose: 1,000 mg Admin: 04/23/17 08:35 Dose: 1,000 mg Admin: 04/22/17 18:32 Dose: 1,000 mg Metoprolol Succinate (Toprol Xl) 50 mg PO DAILY [facility] Last Admin: 04/29/17 09:09 Dose: 50 mg Admin: 04/28/17 09:22 Dose: 50 mg Admin: 04/27/17 08:30 Dose: 50 mg Admin: 04/26/17 09:01 Dose: 50 mg Admin: 04/25/17 09:45 Dose: 50 mg Admin: 04/24/17 08:30 Dose: 50 mg Admin: 04/23/17 08:42 Dose: 50 mg Nf Cinnamon Bark 1000mg CapOwn Med* * 1 cap PO BID [facility] Last Admin: 04/29/17 09:11 Dose: 1 cap Admin: 04/28/17 20:47 Dose: 1 cap Admin: 04/28/17 09:29 Dose: 1 cap Admin: 04/27/17 21:51 Dose: 1 cap Admin: 04/27/17 08:46 Dose: 1 cap Admin: 04/26/17 21:04 Dose: 1 cap Admin: 04/26/17 09:02 Dose: 1 cap Admin: 04/25/17 21:11 Dose: 1 cap Admin: 04/25/17 09:43 Dose: 1 cap Admin: 04/24/17 20:26 Dose: 1 cap Admin: 04/24/17 08:37 Dose: 1 cap Admin: 04/23/17 21:01 Dose: 1 cap Admin: 04/23/17 08:36 Dose: 1 cap Admin: 04/22/17 20:08 Dose: 1 cap Nf Melatonin 3 Mg (Own Med) 3 mg PO BEDTIME [facility] Last Admin: 04/28/17 20:47 Dose: 3 mg Admin: 04/27/17 21:51 Dose: 3 mg Admin: 04/26/17 21:04 Dose: 3 mg Admin: 04/25/17 21:12 Dose: 3 mg Admin: 04/24/17 20:26 Dose: 3 mg Admin: 04/23/17 21:01 Dose: 3 mg Admin: 04/22/17 20:11 Dose: 3 mg Tresiba Insulin 200unit/Ml Pen Own Med 0 each SUBCUT DAILY [facility] Last Admin: 04/29/17 09:17 Dose: 70 each Admin: 04/28/17 09:16 Dose: 70 each Admin: 04/27/17 09:02 Dose: 70 each Admin: 04/26/17 09:03 Dose: 70 each Admin: 04/25/17 09:41 Dose: 70 each Admin: 04/24/17 08:32 Dose: 70 each Admin: 04/23/17 08:42 Dose: 70 each Potassium Chloride (Klor-Con 10) 40 meq PO DAILY@0800 [facility] Last Admin: 04/29/17 07:58 Dose: 40 meq Admin: 04/28/17 09:17 Dose: 40 meq Admin: 04/27/17 08:28 Dose: 40 meq Admin: 04/26/17 08:07 Dose: 40 meq Admin: 04/25/17 08:22 Dose: 40 meq Admin: 04/24/17 08:27 Dose: 40 meq Admin: 04/23/17 08:35 Dose: 40 meq Ropinirole HCl (Requip) 6 mg PO BEDTIME [facility] Last Admin: 04/28/17 20:44 Dose: 6 mg Admin: 04/27/17 21:52 Dose: 6 mg Admin: 04/26/17 21:02 Dose: 6 mg Admin: 04/25/17 21:14 Dose: 6 mg Admin: 04/24/17 20:22 Dose: 6 mg Admin: 04/23/17 21:02 Dose: 6 mg Admin: 04/22/17 20:10 Dose: 6 mg Ropinirole HCl (Requip) 1 mg PO TID PRN PRN Reason: Other Last Admin: 04/29/17 13:27 Dose: 1 mg Admin: 04/28/17 15:29 Dose: 1 mg Admin: 04/28/17 11:03 Dose: 1 mg Admin: 04/27/17 18:25 Dose: 1 mg Admin: 04/27/17 14:29 Dose: 1 mg Admin: 04/27/17 09:11 Dose: 1 mg Admin: 04/26/17 14:03 Dose: 1 mg Admin: 04/26/17 09:10 Dose: 1 mg Admin: 04/25/17 15:56 Dose: 1 mg Senna/Docusate Sodium (Senna Plus) 1 tab PO BID [facility] Last Admin: 04/29/17 09:11 Dose: 1 tab Admin: 04/28/17 20:43 Dose: 1 tab Admin: 04/28/17 09:17 Dose: 1 tab Admin: 04/27/17 21:53 Dose: Not Given Admin: 04/27/17 08:30 Dose: 1 tab Admin: 04/26/17 21:04 Dose: 1 tab Admin: 04/26/17 09:01 Dose: 1 tab Admin: 04/25/17 21:13 Dose: 1 tab Admin: 04/25/17 09:43 Dose: 1 tab Admin: 04/24/17 20:21 Dose: 1 tab Admin: 04/24/17 08:29 Dose: 1 tab Admin: 04/23/17 21:02 Dose: 1 tab Admin: 04/23/17 08:42 Dose: 1 tab Admin: 04/22/17 20:10 Dose: 1 tab Trazodone HCl (Trazodone) 50 mg PO BEDTIME [facility] Last Admin: 04/28/17 20:43 Dose: 50 mg Admin: 04/27/17 21:53 Dose: 50 mg Admin: 04/26/17 21:02 Dose: 50 mg Admin: 04/25/17 21:14 Dose: 50 mg Admin: 04/24/17 21:20 Dose: 50 mg
--- NOTE | 2017-05-31 14:10 | PN ---
DATE: 04/23/2017 SUBJECTIVE: Mr. Valencia is a 71-year-old gentleman, who was admitted yesterday for a one-week stay in swing bed. He is admitted for strengthening. He has been ill lately and as part of the workup for the illness, he was found to have a mass in the pancreas which was subsequently biopsied and was shown to be adenocarcinoma. At the time of diagnosis of the pancreatic cancer, he was also found to have multiple mets to the liver as well as bone. He also recently had an NSTEMI and a stent placed in the LAD. Mr. Valencia has declined any further workup for the cancer, and following his short-swing bed stay, the plan is for him to go home and he will be picked up by [facility]. PAST MEDICAL HISTORY: Includes: 1. Type 2 diabetes. 2. Aortic stenosis for which he had valve replacement in 2011. 3. Hypertension. 4. Dyslipidemia. 5. Obesity. 6. Restless legs syndrome. 7. Sleep apnea for which he uses CPAP. Review of his clinical data since the time of admission shows that he is taking in fluids. He is voiding. He is tolerating 100% of his meals. His vital signs have been stable. He has remained afebrile. Review of his blood sugars since admission shows fairly well controlled blood sugars with only one sugar above 200. PHYSICAL EXAMINATION: General: Today, his is present in the room as well as another family member. Mr. Valencia is sleeping rather soundly, and when he is awake, he really does not participate in a meaningful way in the visit. When asked, however, he voiced no concerns or complaints. Vital Signs: Blood pressure 138/82, pulse 94, respiratory rate 20, oxygen saturation 98% on room air, temperature is 97.0 Admission weight was 276 pounds. HEENT: Unremarkable. ENT was clear. Chest: Showed diminished bilateral breath sounds. Heart: Showed regular rate and rhythm. Abdomen: Obese and benign. Extremities: Showed the calves to be soft and nontender with trace edema. Neurologic: Neurologically, there were no gross motor or sensory deficits. PLAN: Current orders are reviewed. We will continue the present management. He continues on his usual medications. No changes were made. Plan is for him to work with Physical therapy on a daily basis with the goal of going home at the end of the week. No other changes are made today. MOD /[id number] MTDD
--- NOTE | 2017-05-31 14:29 | PN ---
DATE: 04/26/2017 HISTORY OF PRESENT ILLNESS: Mr. Valencia is a 71-year-old gentleman with metastatic pancreatic cancer. He was admitted to swing bed for a week for strengthening following a prolonged illness. The plan is that he will be discharged to home this week and will be followed by [facility] at that point. There has been some improvement in his condition since last week. He now is up. He is awake. He is alert. He seems to be tolerating his medications well. He denies any pain. He is up in the chair. He has almost continuous company of friends and relatives. On exam today, he is certainly much more appropriate and participates in the visit. Although at times, he does appear to be confused, but this is an improvement since he was last seen on the . Review of his clinical data shows that he continues to take adequate fluids. He is voiding and moving his bowels. Continues to tolerate his diet. Vital signs are stable and he has remained afebrile. Vital signs also show occasional tachycardia. Review of his blood sugars show sugars continued to be fairly well controlled. PHYSICAL EXAMINATION: Vital Signs: On exam today, blood pressure is 135/85, pulse 95, respiratory rate 20, oxygen saturation 99% on room air. He remains afebrile. HEENT: Unremarkable. ENT is clear. Sclerae were nonicteric. Mouth showed moist mucous membranes. Chest: Clear with diminished bilateral breath sounds. Heart: Regular rate and rhythm. Abdomen: Obese, soft, and benign. Extremities: The calves to be soft and nontender with trace anterior tibial edema. Neurologic: Neurologically, he is intact. PLAN: No changes are made in his care today. We will continue the present management. The goal at this point is for discharge to home later this week. No other changes. [facility] /[id number]
--- NOTE | 2017-06-01 03:44 | DISCH ---
DISCHARGE DIAGNOSES: 1. Metastatic adenocarcinoma of the pancreas with documented metastatic disease to the liver and lungs. 2. Coronary artery disease with recent [id number] elevation myocardial infarction and stent placed in the left anterior descending. 3. Generalized weakness and debility due to multiple medical issues. Has worked on a daily basis with therapy for strengthening prior to discharge to home. 4. Type 2 diabetes. Sugar is well controlled. Remainder of past medical and surgical history is as outlined in the admission history and physical. REASON FOR ADMISSION: Mr. Valencia is a 71-year-old gentleman who was recently hospitalized in [place] and was found to have a significant pancreatic mass which was biopsied and found to be adenocarcinoma. At the time of the diagnosis, he was also found to have multiple metastatic lesions in the liver as well as metastasis to the lungs. He also recently had an NSTEMI and had a stent placed in the LAD. He was admitted for 1 week stay in swing bed for strengthening prior to going home. He will now be followed by [facility]. PERTINENT LABS AND X-RAYS: No imaging studies were performed during this admission. His blood sugars were followed on a daily basis and were well controlled with only an occasional sugar over 200. During this admission, his appetite was good. He tolerated his diet. He was drinking adequate fluids. He was voiding and moving his bowels. Vital signs remained stable with an occasional slight tachycardia but otherwise within normal limits and he was afebrile. PHYSICAL EXAMINATION: General: Today on the day of discharge, he is awake. He is alert, slightly confused at times. Speaking with his in the hallway, and he came out without his walker. Staff brought the walker to him, and at times, he tends to be confused and slightly impulsive. Vital Signs: Blood pressure was 133/89, pulse 98, respiratory rate 20, oxygen saturation 99% on room air. He is afebrile. HEENT: Unremarkable. Sclerae were nonicteric. ENT was otherwise clear. Chest: Showed clear but diminished bilateral breath sounds. Heart: Showed regular rate and rhythm. Abdomen: Obese and benign. Extremities: Showed the calves to be soft and nontender. There were palpable pulses. There was trace anterior tibial edema. Mr. Valencia will be discharged to home. He will be followed by [facility]. Even with the multiple mets of the liver, he remains pain-free. His biggest complaint had been of restless legs. He is on both gabapentin and Requip for the restless legs syndrome. DISCHARGE MEDICATIONS: His medication list is reviewed. Complete dosing can be found in [employer]. His medication list includes: 1. Ropinirole. 2. Tylenol. 3. Trazodone. 4. Metformin. 5. Atorvastatin. 6. Senokot. 7. Potassium chloride. 8. Metoprolol succinate. 9. Melatonin. 10.Lisinopril. 11.Gabapentin. 12.Furosemide. 13.Ferrous sulfate. 14.Plavix. 15.Low-dose aspirin. 16.Cinnamon bark. 17.Xalatan eye drops. ALLERGIES: No known allergies. CONDITION AT THE TIME OF DISCHARGE: Improved and relatively stable. PROGNOSIS: Poor. CODE STATUS: At the time of discharge will be comfort care to be followed [facility]. Mr. Valencia went home and rapidly deteriorated and on 05/03/2017. MODL /[id number]
== END 2017-04-29 16:00 | disposition hospice, home (50) | DRG 861 ==
LOC: DL.MS 13:29 → UNDOADMIN 13:29 → DL.MS 15:44
PROVIDERS: ADMIT Internal Medicine; ATTEND Internal Medicine
DX: R53.1 Weakness (principal); C25.9 Malignant neoplasm of pancreas, unspecified; C79.51 Secondary malignant neoplasm of bone; Z86.711 Personal history of pulmonary embolism; E11.9 Type 2 diabetes mellitus without complications; I25.810 Atherosclerosis of coronary artery bypass graft(s) without angina pectoris; I10 Essential (primary) hypertension; Z95.5 Presence of coronary angioplasty implant and graft; Z95.2 Presence of prosthetic heart valve; E78.5 Hyperlipidemia, unspecified; E66.9 Obesity, unspecified; G47.30 Sleep apnea, unspecified; G25.81 Restless legs syndrome; Z87.891 Personal history of nicotine dependence; Z96.659 Presence of unspecified artificial knee joint; I25.2 Old myocardial infarction; Z66 Do not resuscitate
CPT/HCPCS: 71046; 82962; 97110-GO; 97110-GP; 97116-GP; 97162-GP; 97166-GO; A9270-GY; J1650